=== PATIENT | male | born 1945 | race Caucasian/White ===

== ENCOUNTER 2017-11-26 11:31 | Emergency (ER) | payer OTHER ==
[~2017-11-26] VITALS: Ht 167.6 cm; Wt 93.3 kg
[~2017-11-26 11:31] MED LIST: AMLODIPINE BESY10 MG PO; ASPIRIN81 M2 PO; ATIVAN2 MG PO; CARDURA4 MG PO; CARVEDILOL3.125 MG PO; CLONAZEPAM1 MG PO; COZAAR100 MG PO; Cleocin PO; DILAUDID2 MG PO; DILAUDID4 MG PO; DOXYCYCLINE HY100 M3 PO; DOXYCYCLINE HY100 MG PO; Ecotrin PO; GABAPENTIN400 MG PO; GLIPIZIDE XL10 MG PO; GLIPIZIDE10 M1 PO; GLIPIZIDE10 MG PO; GLIPIZIDE5 MG PO; Glucotrol PO; HYDROCHLOROTHIA25 MG PO; Keflex PO; LEVOTHYROXINE150 MCG PO; LORAZEPAM0.5 MG PO; LOSARTAN POTAS100 MG PO; MOTRIN100 M1 PO; NORVASC10 MG PO; PAIN PILL; PERCOCET 10-651 EACH PO; Roxicet,Percocet 5/3 PO; SINEMET 25-1001 EACH PO; SYNTHROID150 MCG PO; TRAMADOL HCL50 MG PO; TRICOR48 MG PO; TYLENOL REGULA325 MG PO; Vitamin B-12 PO; XANAX0.25 MG PO; ZITHROMAX500 MG PO
[2017-11-26 14:38] VITALS: BP 136/80
== END 2017-11-26 16:13 | disposition home or self-care (01) ==
LOC: EME 11:31
DX: S09.90XA Unspecified injury of head, initial encounter (principal); S20.229A Contusion of unspecified back wall of thorax, initial encounter; W01.0XXA Fall on same level from slipping, tripping and stumbling without subsequent striking against object, initial encounter; Y93.E1 Activity, personal bathing and showering; G20 Parkinson's disease; Z88.8 Allergy status to other drugs, medicaments and biological substances
CPT/HCPCS: 70450; 72070; 72125; 99281; 99284